=== PATIENT | female | born 1945 | race Caucasian/White ===

== ENCOUNTER 2017-07-17 12:24 | Outpatient (CLI) | payer MEDICARE, OTHER | END 2017-07-17 12:25 | disposition home or self-care (01) | LOC: BICMAMMO 12:24 | PROVIDERS: ATTEND Family Medicine | DX: Z12.31 Encounter for screening mammogram for malignant neoplasm of breast (principal) | CPT/HCPCS: 77063; 77067 ==

== ENCOUNTER 2018-01-17 14:34 | Emergency (ER) | payer MEDICARE, OTHER ==
[2018-01-17 15:21] LABS: Hemoglobin 13.6 g/dL (12.0-16.0); Mean Corpuscular HGB CONC 33.4 g/dL (32.0-36.0); Mean Corpuscular Hemoglobin 30.9 pg (27.0-31.0); Mean Corpuscular Volume 92.4 fL (78.0-98.0); Mean Platelet Volume 6.9 fL (7.4-10.4); Platelet Count 258 thou/uL (130-400); RBC Distribution Width 11.5 % (11.5-14.5); Red Blood Cell (RBC) Count 4.42 mill/uL (4.20-5.40); White Blood Cell (WBC) Count 16.8 thou/uL (4.8-10.8)
--- NOTE | 2018-01-17 15:27 | RAD ---
TWO VIEW CHEST SERIES: INDICATION: Cough. FINDINGS: No consolidation, effusion, or pneumothorax. Mild interstitial prominence of the lungs is seen. Car diac silhouette is normal in size. There is vascular calcification. Scattered osseous degenerative changes are present. Areas of mild height loss and end plate irregularity are seen within the imaged spine. IMPRESSION: 1. No lobar consolidation. 2. Additional details are described above. POS: STEPHANIE
[2018-01-17 15:36] LABS: ALT (SGPT) 25 U/L (8-55); AST (SGOT) 32 U/L (5-34); Albumin 4.3 g/dL (3.4-4.8); Alkaline Phosphatase 100 U/L (40-150); Anion Gap 16 mmol/L (10-20); BUN (Urea Nitrogen) 27 mg/dL (9.8-20.1); Bilirubin, Total 0.6 mg/dL (0.2-1.2); Calc. Creatinine Clearance 0 mL/min (70-130); Calcium 10.9 mg/dL (7.8-10.44); Carbon Dioxide 24 mmol/L (23-31); Chloride 103 mmol/L (98-107); Estimated GFR-MDRD 35; Globulin 3.6 g/dL (2.4-3.5); Glucose 112 mg/dL (83-110); Potassium 4.2 mmol/L (3.5-5.1); Protein, Total 7.9 g/dL (6.0-8.3); Sodium 139 mmol/L (136-145)
[2018-01-17 15:42] LABS: Band 11 % (5-11); Lymphocytes 11 % (21-51); MDiff Complete? YES; Monocytes 1 % (0-10); Neutrophil 77 % (42-75); PLT Morphology Comment Appears Adequate
== END 2018-01-17 17:28 | disposition home or self-care (01) ==
LOC: ERS 14:34
DX: J40 Bronchitis, not specified as acute or chronic (principal); D50.9 Iron deficiency anemia, unspecified; E78.5 Hyperlipidemia, unspecified; I10 Essential (primary) hypertension; G89.29 Other chronic pain; K21.9 Gastro-esophageal reflux disease without esophagitis; M54.9 Dorsalgia, unspecified; M81.0 Age-related osteoporosis without current pathological fracture; Z87.891 Personal history of nicotine dependence; Z79.82 Long term (current) use of aspirin; Z79.899 Other long term (current) drug therapy
CPT/HCPCS: 36415; 71046; 80053; 83605; 85025; 87040; 96360

== ENCOUNTER 2018-02-23 12:38 | Outpatient (CLI) | payer MEDICARE, OTHER | END 2018-02-23 12:39 | disposition home or self-care (01) | LOC: BICULT 12:38 | PROVIDERS: ATTEND Family Medicine | DX: N18.9 Chronic kidney disease, unspecified (principal); N28.1 Cyst of kidney, acquired | CPT/HCPCS: 36415; 76770; 80048; 82570; 84156; 85014; 85018 ==

== ENCOUNTER 2018-07-29 08:31 | Outpatient (CLI) | payer MEDICARE, OTHER | END 2018-07-29 08:32 | disposition home or self-care (01) | LOC: BICMAMMO 08:31 | PROVIDERS: ATTEND Family Medicine | DX: Z12.31 Encounter for screening mammogram for malignant neoplasm of breast (principal); R92.1 Mammographic calcification found on diagnostic imaging of breast | CPT/HCPCS: 77063; 77067 ==

== ENCOUNTER 2018-09-09 09:52 | Outpatient (CLI) | payer MEDICARE, OTHER ==
--- NOTE | 2018-09-09 11:21 | BD ---
DEXA BONE DENSITY STUDY: HISTORY: Postmenopausal. LUMBAR SPINE BMD (g/cm2) T-SCORE L1 0.951 -0.4 L2 1.051 +0.2 L3 1.154 +0.6 L4 1.277 +2.0 TOTAL 1.123 +1.7 LEFT FEMORAL NECK: 0.643 -1.9 TOTAL 0.783 -1.3 IMPRESSION: 1. Normal bone mineral density of the lumbar spine. 2. Osteopenia of the left femoral neck. POS: STEPHANIE
== END 2018-09-09 09:53 | disposition home or self-care (01) ==
LOC: BICMAMMO 09:52
PROVIDERS: ATTEND Internal Medicine Rheumatology
DX: M81.0 Age-related osteoporosis without current pathological fracture (principal); M85.852 Other specified disorders of bone density and structure, left thigh
CPT/HCPCS: 77080

== ENCOUNTER 2019-07-30 10:45 | Outpatient (CLI) | payer MEDICARE, OTHER ==
--- NOTE | 2019-07-30 11:23 | MMO ---
Bilateral MAMMO Bilat Screen [facility]. CLINICAL HISTORY: Patient is 74 years old and is seen for screening. The patient has no family history of breast cancer. The patient has no personal history of cancer. VIEWS: The views performed were: bilateral craniocaudal with tomosynthesis and bilateral mediolateral oblique with tomosynthesis. FILMS COMPARED: The present examination has been compared to prior imaging studies performed at [facility] on 07/17/2017 and 07/29/2018, at [facility] on 05/29/2015, and at [facility] on 06/14/2016. This study has been interpreted with the assistance of computer-aided detection. MAMMOGRAM FINDINGS: There are scattered fibroglandular densities. There are stable benign appearing calcifications seen in both breasts. There are also vascular calcifications. There are no suspicious masses, suspicious calcifications, or new areas of architectural distortion. IMPRESSION: THERE IS NO MAMMOGRAPHIC EVIDENCE OF MALIGNANCY. A ROUTINE FOLLOW-UP MAMMOGRAM IN 1 YEAR IS RECOMMENDED. THE RESULTS OF THIS EXAM WERE SENT TO THE PATIENT. ACR BI-RADS Category 2 - Benign finding MAMMOGRAPHY NOTE: 1. A negative mammogram report should not delay a biopsy if a dominant of clinically suspicious mass is present. 2. Approximately 10% to 15% of breast cancers are not detected by mammography. 3. Adenosis and dense breasts may obscure an underlying neoplasm. Reported by: DAMIEN MCCLELLAN MD Electonically Signed: [id number]
== END 2019-07-30 10:46 | disposition home or self-care (01) ==
LOC: BICMAMMO 10:45
PROVIDERS: ATTEND Family Medicine
DX: Z12.31 Encounter for screening mammogram for malignant neoplasm of breast (principal)
CPT/HCPCS: 77063; 77067

== ENCOUNTER 2020-06-14 13:34 | Outpatient (CLI) | payer MEDICARE, OTHER ==
--- NOTE | 2020-06-14 14:36 | BD ---
BONE DENSITOMETRY USING DEXA: HISTORY: Screening for postmenopausal osteoporosis. Age-related osteoporosis. FINDINGS: Lumbar Spine: BMD (g/cm2) L1 0.933 T-Score: -0.5 Z-Score: 1.7 L2 1.143 T-Score: 1.0 Z-Score: 3.5 L3 1.304 T-Score: 2.0 Z-Score: 4.6 L4 1.359 T-Score: 2.7 Z-Score: 5.4 L1-L4 1.200 T-Score: 1.4 Z-Score: 3.9 Femoral Neck: 0.640 T-Score: -1.9 Z-Score: 0.3 Total Femur: 0.784 T-Score: -1.3 Z-Score: 0.6 There has been interval improvement of 6.8% in the BMD of the lumbar spine and improvement OF 0.1% in the BMD of the proximal femur since 09/09/2018. Impression: Osteopenia. POS: OFF
== END 2020-06-14 13:35 | disposition home or self-care (01) ==
LOC: BICMAMMO 13:34
PROVIDERS: ATTEND Family Medicine
DX: M81.0 Age-related osteoporosis without current pathological fracture (principal); M85.859 Other specified disorders of bone density and structure, unspecified thigh
CPT/HCPCS: 77080

== ENCOUNTER 2020-08-01 13:50 | Outpatient (CLI) | payer MEDICARE, OTHER ==
--- NOTE | 2020-08-01 14:17 | MMO ---
Bilateral MAMMO Bilat Screen [facility]. CLINICAL HISTORY: Patient is 75 years old and is seen for screening. The patient has no family history of breast cancer. The patient has no personal history of cancer. VIEWS: The views performed were: bilateral craniocaudal with tomosynthesis and bilateral mediolateral oblique with tomosynthesis. FILMS COMPARED: The present examination has been compared to prior imaging studies performed at [facility] on 07/17/2017, 07/29/2018 and 07/30/2019, and at [facility] on 06/14/2016. This study has been interpreted with the assistance of computer-aided detection. MAMMOGRAM FINDINGS: There are scattered fibroglandular densities. There are vascular calcifications seen in both breasts. There are no suspicious masses, suspicious calcifications, or new areas of architectural distortion. IMPRESSION: A ROUTINE FOLLOW-UP MAMMOGRAM IN 1 YEAR IS RECOMMENDED. THE RESULTS OF THIS EXAM WERE SENT TO THE PATIENT. ACR BI-RADS Category 2 - Benign finding MAMMOGRAPHY NOTE: 1. A negative mammogram report should not delay a biopsy if a dominant of clinically suspicious mass is present. 2. Approximately 10% to 15% of breast cancers are not detected by mammography. 3. Adenosis and dense breasts may obscure an underlying neoplasm. Reported by: DAMIEN MCCLELLAN MD Electonically Signed: [id number]
== END 2020-08-01 13:51 | disposition home or self-care (01) ==
LOC: BICMAMMO 13:50
PROVIDERS: ATTEND Family Medicine
DX: Z12.31 Encounter for screening mammogram for malignant neoplasm of breast (principal)
CPT/HCPCS: 77063; 77067

== ENCOUNTER 2021-08-01 11:07 | Outpatient (CLI) | payer MEDICARE, OTHER | END 2021-08-01 11:08 | disposition home or self-care (01) | LOC: NM 11:07 | PROVIDERS: ATTEND Internal Medicine Nephrology | DX: E21.0 Primary hyperparathyroidism (principal); E83.52 Hypercalcemia | CPT/HCPCS: 78072; A9500 ==

== ENCOUNTER 2021-08-23 09:14 | Outpatient (CLI) | payer MEDICARE, OTHER | END 2021-08-23 09:15 | disposition home or self-care (01) | LOC: BICMAMMO 09:14 | PROVIDERS: ATTEND Family Medicine | DX: Z12.31 Encounter for screening mammogram for malignant neoplasm of breast (principal) | CPT/HCPCS: 77063; 77067 ==

== ENCOUNTER 2022-09-06 12:07 | Outpatient (CLI) | payer MEDICARE, OTHER | END 2022-09-06 12:08 | disposition home or self-care (01) | LOC: CT 12:07 | PROVIDERS: ATTEND Otolaryngology Plastic Surgery within the Head & Neck | DX: M85.80 Other specified disorders of bone density and structure, unspecified site (principal) | CPT/HCPCS: 70480 ==

== ENCOUNTER 2023-02-10 16:41 | Emergency (ER) | payer MEDICARE, OTHER ==
[2023-02-10 18:18] LABS: %Basophils 0.4 % (0.0-1.0); %Eosinophils 0.4 % (0.0-10.0); %Monocytes 12.7 % (0.0-10.0); Hemoglobin 10.5 g/dL (12.0-16.0); Mean Corpuscular HGB CONC 33.4 g/dL (32.0-36.0); Mean Corpuscular Hemoglobin 32.8 pg (27.0-31.0); Mean Corpuscular Volume 98.1 fl (78.0-98.0); Mean Platelet Volume 9.7 fL (7.4-10.4); Platelet Count 255 10x3/uL (130-400); RBC Distribution Width 12.8 % (11.5-14.5); White Blood Cell (WBC) Count 7.9 10x3/uL (4.8-10.8)
[2023-02-10 18:47] LABS: ALT (SGPT) 24 U/L (8-55); AST (SGOT) 34 U/L (5-34); Alkaline Phosphatase 100 U/L (40-110); Anion Gap 17 mmol/L (10-20); BUN (Urea Nitrogen) 41 mg/dL (9.8-20.1); Bilirubin, Total 0.6 mg/dL (0.2-1.2); CK (CPK) 109 U/L (29-168); Calc. Creatinine Clearance 0 mL/min (70-130); Calcium 9.7 mg/dL (7.8-10.44); Carbon Dioxide 21 mmol/L (23-31); Chloride 105 mmol/L (98-107); Estimated GFR 38; Globulin 3.2 g/dL (2.4-3.5); Glucose 117 mg/dL (83-110); Potassium 3.8 mmol/L (3.5-5.1); Protein, Total 7.2 g/dL (5.8-8.1); Sodium 139 mmol/L (136-145)
[2023-02-10] MEDS ORDERED: HYDROcodone/Acetaminophen 5/325 mg Tablet ONE (20:45)
== END 2023-02-10 20:56 ==
LOC: ERS 16:41
DX: S32.502A Unspecified fracture of left pubis, initial encounter for closed fracture (principal); S32.512A Fracture of superior rim of left pubis, initial encounter for closed fracture; I10 Essential (primary) hypertension; Z87.891 Personal history of nicotine dependence; W19.XXXA Unspecified fall, initial encounter
CPT/HCPCS: 36415; 72170; 80053; 82550; 85025

== ENCOUNTER 2023-12-30 09:44 | Outpatient (CLI) | payer OTHER | END 2023-12-30 09:45 | disposition home or self-care (01) | LOC: BICMAMMO 09:44 | PROVIDERS: ATTEND Family Medicine | DX: M81.0 Age-related osteoporosis without current pathological fracture (principal); M85.851 Other specified disorders of bone density and structure, right thigh | CPT/HCPCS: 77080 ==

== ENCOUNTER 2024-05-25 15:58 | Outpatient (CLI) | payer OTHER | END 2024-05-25 15:59 | disposition home or self-care (01) | LOC: SCSRAD 15:58 | PROVIDERS: ATTEND Family Medicine | DX: M25.571 Pain in right ankle and joints of right foot (principal) ==